=== PATIENT | female | born 1990 | race Caucasian/White ===

== ENCOUNTER 2019-10-20 11:25 | Outpatient (CLI) | payer BC, SELFPAY ==
[2019-10-20 11:43] LABS: Hematocrit 39.3 % (37.0-47.0); Hemoglobin 13.3 g/dL (12.0-15.0)
== END 2019-10-20 11:26 | disposition home or self-care (01) ==
LOC: ANHSURGERY 11:28
PROVIDERS: PCP Family Medicine; Visit Provider Student in an Organized Health Care Education/Training Program
DX: R87.619 Unspecified abnormal cytological findings in specimens from cervix uteri (principal)
CPT/HCPCS: 36415; 85014; 85018

== ENCOUNTER 2019-10-26 00:23 | Day surgery (SDC) | payer BC, SELFPAY ==
[2019-10-12 11:13] VITALS: BMI 26.5
--- NOTE | 2019-10-26 08:01 | PM.IMHP ---
H&P: HPI History of Present Illness Chief complaint: LARISSA 3, abn cervical biopsy Narrative: Ena Dutton is a 29 year old female who presents for cold knife cone. Pt initially presented to me with biopsy proven LARISSA-3 from her PCP. She underwent a LEEP procedure that confirmed LARISSA-3 with indeterminate margins. Follow up Pap smear again showed HSIL. Colposcopy with cervical biopsy again showed LARISSA-3. Review of Systems Cardiovascular: Cardiovascular: Denies chest pain, Denies leg edema, Denies palpitations, Denies dyspnea and Denies dyspnea on exertion Respiratory: Respiratory: Denies cough, Denies dyspnea and Denies dyspnea on exertion Gastrointestinal: Gastrointestinal: Denies abdominal pain, Denies constipation, Denies diarrhea, Denies nausea and Denies vomiting Genitourinary: Genitourinary: Denies hematuria, Denies urinary frequency, Denies dysuria, Denies pelvic pain, Denies urinary incontinence and Denies vaginal discharge Neurologic: Reports system reviewed and no additional complaints, except as documented Psychiatric: Psychiatric: Reports no additional psychiatric complaints Endocrine: Endocrine: Denies palpitations PMF Family History Family History (Updated 02/22/18 @ 16:22 by DOCTOR UNKNOWN) Mother Depression, Onset Age: 54 Hypertension, Onset Age: 54 Family history of congestive heart failure, Onset Age: 54 Patient's mother is , Onset Age: 54 Father Family history of elevated blood lipids Hypertension Social History Social History Smoking status: Never smoker Alcohol intake: current Meds Home Medications and Allergies Home Medications Medication Instructions Recorded Confirmed Type apple cider vinegar 600 mg PO DAILY 10/12/19 10/12/19 History drospirenone-ethinyl estradiol 1 tablet PO QPM 10/12/19 10/12/19 History [Karishma (28)] propranolol 80 mg PO DAILY 10/12/19 10/12/19 History Allergies Allergy/AdvReac Type Severity Reaction Status Date / Time codeine Allergy Unknown Rash Verified 10/12/19 11:15 Antihistamines - Alkylamine AdvReac Unknown Verified 10/12/19 11:27 Exam Const: General: no acute distress Eyes: EOM: EOMs intact bilaterally Neck: Neck: supple Thyroid: thyroid normal Chest: Breast/axilla inspection: normal inspection of the breasts Breast/axilla palpation: normal palpation of the breasts, normal palpation of the axillae and no axillary lymphadenopathy Resp: Effort & Inspection: normal respiratory effort Auscultation: clear to auscultation bilaterally Cardio: Rate: regular rate Rhythm: regular rhythm GI: Inspection: non-distended GI Palp: Yes Soft to palpation, No Tenderness to palpation present (GI) and No Guarding due to palpation present (GI) Auscultation: normal bowel sounds : General: No bladder normal to palpation External Female Exam: normal external appearance Speculum Exam - Vagina: normal vaginal discharge and No vaginal bleeding Speculum Exam - Cervix: nontender Bimanual exam- vagina & uterus: No bladder normal to palpation and No Cervical tenderness present OB/external & speculum: No vaginal bleeding Skin: General skin exam: normal color and no rashes or lesions noted Neuro: Cognition (Neuro): normal cognition Speech: normal speech Extrem: General: normal to inspection and no edema Psych: Mental Status: mental status grossly normal Affect: normal affect Assessment and Plan Assessment and plan (1) 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
[2019-10-26 14:28] VITALS: BP 126/81; PULSE 75; RESP 18; TEMP 36.5; O2SAT 100
--- NOTE | 2019-10-26 14:32 | WPDANESEPPF ---
Anes - Initial Pre Proc Eval Procedure: Operation Date: 10/26/19 16:00 Proposed Procedures p Cold Knife Conization - Samson Ramirez MD Date/Time: 10/26/19 14:32 Surgeon: Samson Ramirez MD Pre Op Diagnosis: LARISSA 3, abn cervical biopsy Patient Data Age: 29 Gender: F Height: 5 ft 3 in Weight: 68.04 kg Allergies Allergy/AdvReac Type Severity Reaction Status Date / Time codeine Allergy Unknown Rash Verified 10/12/19 11:15 Antihistamines - Alkylamine AdvReac Unknown Verified 10/12/19 11:27 Home Medications Medication Instructions Recorded Confirmed Type apple cider vinegar 600 mg PO DAILY 10/12/19 10/12/19 History drospirenone-ethinyl estradiol 1 tablet PO QPM 10/12/19 10/12/19 History [Karishma (28)] propranolol 80 mg PO DAILY 10/12/19 10/12/19 History Patient hx anesthesia problems: none Family hx anesthesia problems: none PMFSH Past Medical History Medical History Prolonged QT interval Family History Family History Mother Depression, Onset Age: 54 Hypertension, Onset Age: 54 Family history of congestive heart failure, Onset Age: 54 Patient's mother is , Onset Age: 54 Father Family history of elevated blood lipids Hypertension Social History Social History Smoking status: Never smoker Alcohol intake: current Anes - Eval Final PreProcedure Day of Procedure 10/26/19 14:32 Patient weight: overweight Heart: regular rate and rhythm Lungs: clear to auscultation Airway: Mallampati scale class II Neurological: alert and oriented Last oral intake: >/= 8 hours ASA classification: II Emergent: no Anesthetic plan: proceed Anesthesia type and monitoring: general GIVS and standard monitoring Informed Consent: The patient's anesthetic plan and its attendant risks and benefits were discussed with the patient/family/POA. Questions were solicited and answers provided to the satisfaction of the patient/family/POA.
[2019-10-26] MEDS: LACTATED RINGERS 1,000 ML 30 ML IV CONT ×2 (14:40→15:54)
[2019-10-26] MEDS: KETOROLAC 30 MG/ML VIAL (*BKC) 15 MG IV PUSH (15:30)
[2019-10-26] MEDS: LIDO 1%/EPINEPHRINE 1:100,000 20 ML VIAL 10 ML INFILTRATE (15:40)
--- NOTE | 2019-10-26 15:54 | PM.PROC ---
Procedure Note - Detailed Date of procedure: 10/26/19 Pre-op diagnosis: LARISSA 3, abn cervical biopsy Description of procedure: 1. On pre-operative bimanual exam, there was no parametrial disease appreciated. On sterile speculum exam, there was no gross disease identified The transformation zone was fully identified in its entirety. SPECIMENS: 1. Cone biopsy of the cervix; stitch at 12 o'clock 2. Post cone ECC INDICATIONS FOR SURGERY: 29 yo female with CIN3. She was counseled as to the indications, risks, benefits, and alternatives to surgery, with the risks including bleeding, infection, damage to surrounding organs, VTE, and complications of anesthesia. Her verbal and written consent was obtained. PROCEDURE: The patient was taken to the OR and general anesthesia induced. She was prepped and draped in candy cane stirrups with support of the back and bilateral lower extremities. I/O catheterization performed of the bladder. The above findings were noted. Infiltration with 1% lidocaine circumfrencially around the cervix was performed. Stay sutures of 0-Vicryl were placed here as well. Using an 11-blade, a circumferential incision lateral to the transformation zone was made; using the knife, a cone shaped biopsy was excised and tagged at the 12 o'clock cervical position for pathology orientation. A post cone endocervical curettage was performed for margin status. Hemostasis was obtained with ball cautery and surgicell powder. The stay sutures and the speculum removed. The patient tolerated the procedure well. Sponge, lap, and needle counts were correct. The patient received no pre-operative anti-microbial prophylaxis and had SCD's on throughout the case for VTE prophylaxis. The patient was taken to the recovery room in stable condition. Anesthesia: MAC Surgeon: Samson Ramirez MD Estimated blood loss (mL): 10 Drains: No Packing: No Pathology: yes (cervical cone biopsy, endocervical curettage ) Complications: No immediate complications Condition: stable Disposition: PACU
[2019-10-26 15:55] VITALS: BP 114/53; PULSE 91; RESP 14; O2SAT 100
[2019-10-26 16:25] VITALS: BP 132/83; PULSE 79; RESP 16
[2019-10-26 17:10] VITALS: BP 137/89; PULSE 67; RESP 14
== END 2019-10-26 17:28 | disposition home or self-care (01) ==
PROVIDERS: PCP Family Medicine; Visit Provider Student in an Organized Health Care Education/Training Program
PROC: 0UB97ZZ Excision of Uterus, Via Natural or Artificial Opening (ICD-10-PCS; CPT 57520; principal; 2019-10-26 16:00)
DX: D06.1 Carcinoma in situ of exocervix (principal)
CPT/HCPCS: 57520; 88305; A9270; J0131; J1100; J1885; J2250; J2405; J2704; J3010; J7120

== ENCOUNTER 2020-03-23 09:35 | Emergency (ER) | payer OTHER, SELFPAY ==
[2020-03-23 09:44] VITALS: BP 128/99; PULSE 86; RESP 20; TEMP 36.6; O2SAT 100
--- NOTE | 2020-03-23 10:00 | ED.URI ---
HPI - URI/Sore Throat General Chief Complaint: Upper Respiratory Infection Stated Complaint: cough/tight lungs/body aches Time Seen by Provider: 03/23/20 10:01 Source: patient and RN notes reviewed Mode of arrival: ambulatory Limitations: no limitations History of Present Illness HPI Narrative: Patient presents today complaining of body aches and cough since this morning. Denies fever, shortness of breath, congestion, rhinorrhea, sore throat. Denies nausea, vomiting, diarrhea. Denies loss of smell or taste. No recent travel. No known COVID-19 exposure. Patient does have history of seasonal allergies for which he takes Zyrtec as needed, but has not had it for a couple of days. 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 Denies history of asthma or COPD. She is a non-smoker. MD elicited complaint: cough Related Data Home Medications Medication Instructions Recorded Confirmed drospirenone-ethinyl estradiol 1 tablet PO QPM 10/12/19 03/23/20 [Karishma (28)] Allergies Allergy/AdvReac Type Severity Reaction Status Date / Time codeine Allergy Unknown Rash Verified 02/01/20 08:35 Review of Systems Review of Systems: Narrative: CONSTITUTIONAL: Denies fever, chills, or sweats.+ Body aches EYES: Denies visual changes, redness, or discharge. ENT: Denies rhinorrhea, congestion, sore throat, or otalgia. CARDIOVASCULAR: Denies chest pain, palpitations, or edema. RESPIRATORY: Denies dyspnea.+ Cough GASTROINTESTINAL: Denies abdominal pain, nausea, vomiting, or diarrhea. GENITOURINARY: Denies dysuria or hematuria. SKIN: Denies rash, itching, or wounds. MUSCULOSKELETAL: Denies back pain, joint pain, or myalgia. NEUROLOGIC: Denies headache, numbness, tingling, or weakness. PSYCH: Denies depression or anxiety. [facility] Past Medical History Medical History (Updated 03/23/20 @ 10:11 by Maritza Rai, NETWORK SUPPORT ANALYST, ) Anogenital (venereal) warts Hx of esophageal reflux Overweight Prolonged QT interval Urticaria Social History Social History Smoking status: Never smoker Alcohol intake: current Gender identity (if verbalized by the patient): Female Comments At time of signature, I have reviewed and agree with nursing past medical, surgical, social and family history unless otherwise noted. Please see nursing chart for further information. There is no relevant family history pertinent to the presenting complaint Exam Narrative: Exam Narrative: GENERAL: Well-appearing, well-nourished, and in no acute distress. HEAD: Normocephalic, atraumatic. EYES: EOMI. No redness or drainage. Conjunctivae normal. ENT: Mucous membranes pink and moist. Nares clear. No rhinorrhea. TMs normal bilaterally. Throat normal. Uvula midline. NECK: Normal AROM. Supple. No lymphadenopathy. CHEST: No respiratory distress. Clear to auscultation. HEART: Regular rate and rhythm. No murmur appreciated. Normal peripheral pulses. EXTREMITIES: Normal range of motion. No edema. SKIN: Warm, dry, no rash. Capillary refill normal. Normal skin turgor. NEURO: No focal deficits. Alert and oriented x3. Gait steady. PSYCH: Normal affect. No signs of depression or anxiety. Course Course Emergency Course: Due to recent exposure and symptoms, patient may have a possible COVID-19 infection. Signs and symptoms discussed with patient. Patient educated to self-isolate in a room in his/her home away from others they live with. Use mask if available. Patient was advised not to leave house for any reason ? Self-treatment discussed including Tylenol for fever, pain, or myalgia, and cough cold medications for symptoms. Patient to check temperature daily and monitor for symptoms of respiratory distress. Patient should check in daily with primary care office/system via phone/virtual platform ? Nature of the disease to cause severe respiratory distress discussed
== END 2020-03-23 10:13 | disposition home or self-care (01) ==
PROVIDERS: Emergency Provider Nurse Practitioner; PCP Family Medicine
DX: J06.9 Acute upper respiratory infection, unspecified (principal); Z20.828 Contact with and (suspected) exposure to other viral communicable diseases; K21.9 Gastro-esophageal reflux disease without esophagitis
CPT/HCPCS: 99211; G0463

== ENCOUNTER 2021-12-13 00:42 | Inpatient (IN) | payer OTHER, SELFPAY ==
[2021-12-13] VITALS (22 sets, daily range): BP systolic 110–155; BP diastolic 68–121; PULSE 57–85; RESP 14–18; TEMP 36.2–37; O2SAT 100; BMI 32.0
--- NOTE | 2021-12-13 01:37 | LDADM ---
This patient, Ena Carrillo, was admitted to Labor/Delivery/Recovery 106 on 12/13/21 at 00:42. Plans for labor, pain management and were discussed with patient. Patient/family oriented to hospital policies and general routines including ID bracelet, bed and alarms, visiting hours, pain management, procedures, bathroom and other care routines, personal items, smoking policy, room service/diet and guest tray routines, security routines, and visiting hours. Patient/Family are encouraged to report perceived risks to care and to ask questions if they do not understand what they are told or what they should do. See [facility] for further documentation.
[2021-12-13 01:57] LABS: Basophils Percent Auto 0.3 % (0.2-1.2); Eosinophils Absolute Auto 0.4 K/mm3 (0-0.3); Eosinophils Percent Auto 4.3 % (0-4.4); Hematocrit 33.8 % (37.0-47.0); Hemoglobin 11.6 g/dL (12.0-15.0); Immature Granulocyte Absolute 0.05 K/mm3 (0.00-0.031); Immature Granulocyte Percent A 0.5 % (0-0.5); Immature Platelet Fraction Pct 17.2 % (0.9-11.2); Lymphocytes Absolute Auto 1.57 K/mm3 (0.9-3.2); Lymphocytes Percent Auto 17.3 % (18.3-44.2); Mean Corpuscular HGB Conc 34.3 g/dl (32-36); Mean Corpuscular Hemoglobin 30.2 pg (26-34); Mean Platelet Volume 13.1 fl (7.4-10.4); Monocytes Absolute Auto 0.9 K/mm3 (0.1-0.6); Neutrophils Absolute Auto 6.2 K/mm3 (1.3-6.7); Neutrophils Percent Auto 67.6 % (45.5-73.1); Platelet Count Result 167 k/mm3 (150-375); Red Blood Count 3.84 M/mm3 (4.2-5.4); Red Cell Distribution Width 13.3 % (11.5-14.5); White Blood Count 9.1 K/mm3 (4.5-10.0)
[2021-12-13] MEDS: LACTATED RINGERS 1,000 ML 125 ML IV CONT (02:27)
[2021-12-13] MEDS: AMPICILLIN 2 GM/NS 100 ML 2 GM/100 ML BAG IVPB (02:28)
[2021-12-13] MEDS: OXYTOCIN 30 UNITS/NS 500 ML 30 UNITS/500 ML BAG 999 UNITS IV CONT ×2 (05:52→06:20)
--- NOTE | 2021-12-13 06:07 | PM.OBPRVD ---
OB - Delivery Note Procedure Delivery date: 12/13/21 Events: Premature Rupture of Membranes Delivery monitor: External FHT Route of delivery: Episiotomy description: None Laceration Description: Perineal - 2nd Degree Delivery repair: vicryl Specimen: No Quantitative Blood Loss (ml): 259 Anesthesia type: Local Disposition: Floor Baby Date of : 12/13/21 Time of : 05:48 Weeks of gestation at delivery: 36 Weight (pounds): 7 Weight (ounces): 5 presentation: vertex position: Right Occiput Anterior Placenta delivery description: Spontaneous Cord Vessel Description: 3 Vessels score one minute: 8 score five minutes: 9
--- NOTE | 2021-12-13 06:09 | PM.IMHP ---
H&P: HPI History of Present Illness Date/Time: 12/13/21 06:09 31-year-old 1 para 0 admitted with spontaneous rupture membranes prior to admission. She had relatively unremarkable . She does have low long QT syndrome it has been asymptomatic. She ruptured at 36 weeks and has progressed rapidly. Group B strep screen was not done yet Chief Complaint: rupture membranes at 36 weeks Review of Systems Review of Systems: All systems reviewed & are unremarkable except as noted in HPI and below PMFSH Past Medical History Medical History Anogenital (venereal) warts Hx of esophageal reflux Infected cyst of skin Overweight Prolonged QT interval Urticaria Family History Family History Mother Depression, Onset Age: 54 Patient's mother is , Onset Age: 54 Family history of congestive heart failure, Onset Age: 54 Hypertension, Onset Age: 54 Father Family history of elevated blood lipids Hypertension Asthma Sibling Long QT syndrome Social History Social History Smoking status: Never smoker Second hand tobacco smoke exposure: Yes Alcohol intake: former Substance use: never Substance use type: does not use Living arrangements: with family Gender identity (if verbalized by the patient): Female Sexual Orientation (if Verbalized by the Patient): Straight or Heterosexual Spiritual care concerns: No Meds Home Medications and Allergies Home Medications Medication Instructions Recorded Confirmed Type docosahexaenoic acid 200 mg capsule mg PO 10/17/21 10/17/21 History Allergies Allergy/AdvReac Type Severity Reaction Status Date / Time codeine Allergy Unknown Rash Verified 12/12/21 12:33 Vital Signs Vital Signs - 24 hr 12/13/21 01:11 12/13/21 01:16 12/13/21 02:32 Temperature 97.9 F Pulse Rate 68 75 61 Respiratory Rate 16 Blood Pressure 151/81 H 155/90 H 133/92 H 12/13/21 02:46 12/13/21 03:01 12/13/21 03:16 Temperature Pulse Rate 69 71 Respiratory Rate Blood Pressure 153/84 H 133/87 136/121 H 12/13/21 03:27 12/13/21 03:31 12/13/21 03:46 Temperature 98.2 F Pulse Rate 65 71 75 Respiratory Rate 16 Blood Pressure 145/79 H 124/98 H 126/83 Exam Const: General: no acute distress Eyes: General: appearance normal, both eyes and all related structures Neck: Neck: supple and no JVD Thyroid: thyroid normal Resp: Effort & Inspection: normal respiratory effort Auscultation: clear to auscultation bilaterally Cardio: Rate: regular rate Rhythm: regular rhythm GI: Inspection: non-distended GI Palp: Yes Soft to palpation, No Tenderness to palpation present (GI) and No Guarding due to palpation present (GI) Auscultation: normal bowel sounds : General: Yes bladder normal to palpation External Female Exam: normal external appearance Speculum Exam - Vagina: normal vaginal discharge and No vaginal bleeding Speculum Exam - Cervix: nontender Bimanual exam- vagina & uterus: bladder normal to palpation and No Cervical tenderness present OB/external & speculum: No vaginal bleeding Skin: General skin exam: no rashes or lesions noted Extrem: General: normal to inspection and no edema Psych: Mental Status: mental status grossly normal Affect: normal affect H&P: Results Labs Labs: Short CBC 12/13/21 Range/Units 01:43 WBC 9.1 (4.5-10.0) K/mm3 Hgb 11.6 L (12.0-15.0) g/dL Hct 33.8 L (37.0-47.0) % Plt Count 167 (150-375) k/mm3 Assessment and Plan Additional Plan impression: 36 week with spontaneous rupture membranes Plan: Antibiotics begun. Spontaneous vent delivery is expected
[2021-12-13] MEDS: LIDOCAINE HCL 1% LOCAL INJ 10 ML VIAL 20 ML (06:25)
[2021-12-13] MEDS: IBUPROFEN 600 MG TABLET PO ×2 (06:26→14:26)
[2021-12-13] MEDS: BENZOCAINE 20% AER SPR (*SP) 56 GM CAN 1 SPRAY TOPICAL (06:27)
[2021-12-13] MEDS: WITCH HAZEL 40 PADS 1 PAD TOPICAL (06:27)
--- NOTE | 2021-12-13 08:25 | PC.NURSE ---
Patient transferred to post room #287 per wheelchair. Support person present. Oriented to unit, room, information board, rooming in, admission packet and security measures. Patient verbalizes understanding.
--- NOTE | 2021-12-13 13:13 | PC.NURSE ---
Breast pump provided due to in level II nursery. Instructions given on cleaning, care, usage, there should be no pain, pumping schedule for milk production, collection, and storage of human milk. Patient was assessed for correct placement, flange size, to pump for comfort and nipple stretching/stimulation for adequate milk production. Mother voiced understanding of the education shared. Reported to the primary RN.
[2021-12-13] MEDS: LANOLIN (LANSINOH) 7.5 GM CREAM 1 APPLIC TOPICAL (14:26)
[2021-12-14] MEDS: IBUPROFEN 600 MG TABLET PO ×2 (00:31→10:23)
[2021-12-14 04:00] VITALS: BP 139/80; PULSE 70; RESP 14; TEMP 36.8; O2SAT 100
[2021-12-14 05:16] LABS: Hematocrit 27.9 % (37.0-47.0); Hemoglobin 9.4 g/dL (12.0-15.0)
--- NOTE | 2021-12-14 09:21 | PM.OBPNVD ---
OB - PN: Subj Subjective Date/time seen: 12/14/21 09:21 Patient comments: no complaints and pain well controlled baby status: doing well OB - PN: Obj Data Labs CBC & Chem 7: 12/14/21 04:42 Labs: Laboratory Results - last 24 hr 12/14/21 04:42 Hgb 9.4 L Hct 27.9 L OB - PN A/P Plan day: 1 Plan: routine care Time Spent With Patient Time: Total time spent is greater than 50% in coordination of care (as documented) at patient's floor/unit and/or counseling patient: Time with patient: less than 15 minutes Review of Systems Review of Systems: All systems reviewed & are unremarkable except as noted in HPI and below Exam Const: General: no acute distress Eyes: General: appearance normal, both eyes and all related structures Neck: Neck: supple and no JVD Thyroid: thyroid normal Resp: Effort & Inspection: normal respiratory effort Auscultation: clear to auscultation bilaterally Cardio: Rate: regular rate Rhythm: regular rhythm GI: Inspection: non-distended GI Palp: Yes Soft to palpation, No Tenderness to palpation present (GI) and No Guarding due to palpation present (GI) Auscultation: normal bowel sounds : General: Yes bladder normal to palpation External Female Exam: normal external appearance Speculum Exam - Vagina: normal vaginal discharge and No vaginal bleeding Speculum Exam - Cervix: nontender Bimanual exam- vagina & uterus: bladder normal to palpation and No Cervical tenderness present OB/external & speculum: No vaginal bleeding Skin: General skin exam: no rashes or lesions noted Extrem: General: normal to inspection and no edema Psych: Mental Status: mental status grossly normal Affect: normal affect
[2021-12-14] MEDS: DOCUSATE SODIUM 100 MG CAPSULE PO (10:23)
[2021-12-14] MEDS: MULTIVIT/MIN/PREN/FOL AC/IRON TABLET 1 TAB PO (10:23)
[2021-12-14] MEDS: POLYSACCHARIDE IRON COMPLEX 150 MG CAPSULE PO ×2 (10:24→19:46)
[2021-12-14 10:25] VITALS: BP 135/80; PULSE 82; RESP 18; TEMP 36.3; O2SAT 100
[2021-12-14 19:53] VITALS: BP 134/77; PULSE 72; RESP 18; TEMP 36.9; O2SAT 100
--- NOTE | 2021-12-15 07:39 | PM.DS ---
DS: Admitting Diagnosis Discharge Date 12/15/2021 Admitting Diagnosis term in active labor DS: Summary Hospital Course Hospital Course: patient was admitted in active labor. She underwent spontaneous vaginal delivery under hospital course unremarkable. This was the 36 week delivery and the baby did well Time Spent with Patient Time attestation: Total time spent providing and/or coordinating discharge services: Exam Const: General: no acute distress Eyes: General: appearance normal, both eyes and all related structures Neck: Neck: supple and no JVD Thyroid: thyroid normal Resp: Effort & Inspection: normal respiratory effort Auscultation: clear to auscultation bilaterally Cardio: Rate: regular rate Rhythm: regular rhythm GI: Inspection: non-distended GI Palp: Yes Soft to palpation, No Tenderness to palpation present (GI) and No Guarding due to palpation present (GI) Auscultation: normal bowel sounds : General: Yes bladder normal to palpation External Female Exam: normal external appearance Speculum Exam - Vagina: normal vaginal discharge and No vaginal bleeding Speculum Exam - Cervix: nontender Bimanual exam- vagina & uterus: bladder normal to palpation and No Cervical tenderness present OB/external & speculum: No vaginal bleeding Skin: General skin exam: no rashes or lesions noted Extrem: General: normal to inspection and no edema Psych: Mental Status: mental status grossly normal Affect: normal affect Discharge Plan Discharge Attending physician on discharge: Ever Giordano Discharging Clinician: Ever Giordano Patient Disposition: Home, Self-Care Activity: no straining and pelvic rest Diet: heart healthy Wound Care Instructions: follow printed instructions Patient Instructions: Antibiotic Form Stand Alone Forms: General Discharge Information Follow-up/Referrals: Ever Giordano MD [Physician] - Discharge Medications: Continued DHA 200 mg capsule 200 mg PO DAILY RF: 0 methylprednisolone 4 mg tablets,dose pack 4 mg PO DAILY RF: 0 erythromycin-benzoyl peroxide 3-5 % gel 1 applic TOPICAL PRN RF: 0 Date of admission: 12/13/21 00:42 Primary Care Provider: Cindi Craig Admitting Provider: Samson Ramirez Attending physician on admission: Samson Ramirez Condition: Stable
--- NOTE | 2021-12-15 07:42 | PM.OBPNVD ---
OB - PN: Subj Subjective Date/time seen: 12/15/21 07:42 Patient comments: no complaints and pain well controlled baby status: doing well OB - PN: Obj Data Labs CBC & Chem 7: 12/14/21 04:42 OB - PN A/P Plan day: 2 Plan: routine care, discharge home and follow up 6 weeks Time Spent With Patient Time: Total time spent is greater than 50% in coordination of care (as documented) at patient's floor/unit and/or counseling patient: Time with patient: less than 15 minutes Review of Systems Review of Systems: All systems reviewed & are unremarkable except as noted in HPI and below Exam Const: General: no acute distress Eyes: General: appearance normal, both eyes and all related structures Neck: Neck: supple and no JVD Thyroid: thyroid normal Resp: Effort & Inspection: normal respiratory effort Auscultation: clear to auscultation bilaterally Cardio: Rate: regular rate Rhythm: regular rhythm GI: Inspection: non-distended GI Palp: Yes Soft to palpation, No Tenderness to palpation present (GI) and No Guarding due to palpation present (GI) Auscultation: normal bowel sounds : General: Yes bladder normal to palpation External Female Exam: normal external appearance Speculum Exam - Vagina: normal vaginal discharge and No vaginal bleeding Speculum Exam - Cervix: nontender Bimanual exam- vagina & uterus: bladder normal to palpation and No Cervical tenderness present OB/external & speculum: No vaginal bleeding Skin: General skin exam: no rashes or lesions noted Extrem: General: normal to inspection and no edema Psych: Mental Status: mental status grossly normal Affect: normal affect
[2021-12-15 08:00] VITALS: PULSE 89; RESP 16; O2SAT 97
[2021-12-15 08:15] VITALS: BP 130/85; PULSE 89; RESP 16; TEMP 36.8; O2SAT 97
[2021-12-15 09:13] LABS: Rapid Plasma Reagin Non-Reactive (NonReactive)
[2021-12-15] MEDS: DOCUSATE SODIUM 100 MG CAPSULE PO (09:55)
[2021-12-15] MEDS: POLYSACCHARIDE IRON COMPLEX 150 MG CAPSULE PO (09:55)
[2021-12-15] MEDS: MULTIVIT/MIN/PREN/FOL AC/IRON TABLET 1 TAB PO (09:55)
[2021-12-15] MEDS: TETANUS,DIPHTHERIA,AC PERTUSSIS ADULT (0.5 ML) BOOSTRIX IM (09:57)
--- NOTE | 2021-12-15 10:19 | PC.NURSE ---
Patient viewed the discharge video Mother & Baby Care, The First Two Weeks . Patient was given the opportunity and encouraged to ask questions. Patient verbalized understanding of information shared and has been given the mother/baby guide for home reference.
--- NOTE | 2021-12-15 15:00 | PC.NURSE ---
[id number] Introductions were made and mother led the conversation with her experience and plan to feed her so far and her ability to independently latch infant optimally without discomfort. Reminded parents to use good handwashing technique to prevent infection. Mother is feeding appropriately for growth of and understands stimulating to eat if needed. Mother works well with her with encouragement and education. Encouraged understanding of the benefits of skin to skin (unwrapping infant and placing vertically on her chest), responsive feeding and how to watch for early feeding signs, frequency of feeding on demand about every 8-12 times in 24 hours (every 2-3 hours), milk production, duration of feeding, signs of adequate intake/output and how to record on the feeding sheet. Reviewed positioning and ear, shoulder, hip alignment, supporting the breast, asymmetrical latch (off-center), and leading with the chin with a big open side gape. latched optimally to the left breast in football position. Infant maintained latch for 10 minutes then self detached. Nipple was slightly misshaped and mother encouraged to put forth efforts to latch with having a big wide gape due to the size of the nipple in comparison to the infant's mouth. Mother latched infant to the right breast using cross cradle. Reviewed changing up positions as infant learns to latch better with each feeding. Education given to mother of how to visualize suck/swallow ratios and drinking at the breast. was able to maintain latch without discomfort to mother. Nipple care reviewed with optimal latch and good positioning. Reminding mother of comfort measures of healing with a warm and wet washcloth to rinse breast, then leave open to air-dry as needed. Reviewed good handwashing when or touching the breast/nipples to prevent infection. Resources used to facilitate learning were used with the visual handouts/mom and baby guide. Mother voiced understanding of responsive feedings, stimulating with skin to skin, hand expressed colostrum, touch, talking to to encourage if it has been 2 -3 hours since the start of the last . Reviewed the importance of putting forth efforts to stimulate 36 week infant to wake and breastfeed 8-12 times in a 24 hour period. has had appropriate feedings in the last 24 hours meets the outcomes for weight, output and jaundice at this time. Mother states she is confident to continue effectively /pumping if there is not an effective breastfeed, and supplementing per order until weight gain improves her at home or when to call for assistance and denies any additional assistance or education at this time. Reinforced understanding of milk production, transition of milk, signs of adequate intake, prevention/relief of engorgement, responsive after visualizing feeding cues, the different methods of stimulating to breastfeed 2-3 hours after the start of the last feeding, community resources, medication information reviewed per [employer] and when to call the infant/maternal care provider using the resource of the mom and baby guide/[facility] website. Mother voiced understanding of the education shared. Reported to the primary RN.
--- NOTE | 2021-12-15 15:19 | PC.NURSE ---
1010 - Re-enforced teaching to father of the baby to stimulate 36 week delivered infant to effectively awaken, drink at the breast, and supplement. Parents have an appt with follow-up and with ICP tomorrow. Father voiced understanding to wake infant up for feedings every 2-3 hours if there are no feeding cues visualized. Reported to primary RN.
[2021-12-16 07:44] VITALS: BP 133/88; PULSE 91; RESP 20; TEMP 37.1; O2SAT 100
== END 2021-12-15 12:41 | disposition home or self-care (01) | DRG 805 ==
LOC: ANHOB2 12-15 11:30 → ANHLDR 12-15 16:17 → ANHOB2 12-15 16:17
PROVIDERS: Admitting Provider Obstetrics & Gynecology; PCP Family Medicine; Visit Provider Obstetrics & Gynecology
DX: O42.913 Preterm premature rupture of membranes, unspecified as to length of time between rupture and onset of labor, third trimester (principal); Z37.0 Single live birth; Z3A.35 35 weeks gestation of pregnancy; O60.14X0 Preterm labor third trimester with preterm delivery third trimester, not applicable or unspecified; O62.3 Precipitate labor; O70.1 Second degree perineal laceration during delivery
CPT/HCPCS: 36415; 84112; 85014; 85018; 85025; 85055; 86592; 86850; 86900; 86901; 90715; A9270; J0290; J2590; J7120

== ENCOUNTER 2022-01-06 12:49 | Outpatient (RCR) | payer OTHER, SELFPAY ==
--- NOTE | 2022-01-06 15:39 | PC.NURSE ---
In- 1249 Out- 1429 Reason for visit: latch issues History: Mother delivered at 35 6/7 after premature rupture of membranes at [facility]. . No other complications noted with exception to an unexpected early delivery. Infant History: was born at 35 6/7 and was level 2 at the hospital after delivery. Observations: was in the late stage of feeding cues at appt. time. was able to organize and calm with skin to skin. remained eager to eat and presented with a big open wide gape mouth but at times would lift his tongue to latch. Repeated attempts to latch and infant was able to maintain latch after the milk let down in football positioning on the right breast. Latch is optimal as mother states there is no discomfort, rounded cheek line with no dimpling, clicking, popping. Mother voiced understanding of knowing the difference between good rocking nutritive suck/ swallowing versus non-nutritive sucking. Mother is encouraged to breastfeed until baby detaches. Mother states she had been limiting to 15 min on each side per Dr's order from the first [facility] visit. Mother reassured that now that her milk is in and infant is gaining weight to not have feeding time limit restrictions. detached and burped. Mother offered the left breast using football position. opens with big wide gape but at times lifts his tongue. Mother encouraged to wait until the tongue drops to latch infant and work on timing. Mother denies discomfort after a few minutes of . Mother encouraged to breastfeed without a time limit. Infant is stimulated at times to keep drinking at the breast. Nipple was slightly misshaped after infant self-detached. Reviewed positioning, milk production, optimal latching, changing positioning, and timing feeding early while infant is quiet, alert, and awake before infant is crying and fussy. may move through the feeding cues quicker due to early delivery and mother encouraged to continue to rest, stay hydrated, practice skin to skin and working with positioning and latching optimally. Mother voiced understanding of the review of education. weight: 3315g Lowest weight: 2950g Last weight: 7-3 Pre-feed weight: 3499 Post-feed weight: 3543 Plan of Care: Mother will breastfeed in different positions to work on maintaining big open wide gaping latch that is deep and protects the nipple. Mother is planning on not restricting the time and timing the latch with the tongue down. Mother is pumping to improve her milk supply. Discussion of bottle feeding with formula and the risk and benefits of that as it pertains to with optimal latching. Goals are: Nipple care and achieving and maintaining effective latch. Follow up plans: Mother will follow-up with a phone call to discuss how the plan at home is going. Mother voiced understanding of when to call her ICP.
== END 2022-02-24 09:15 | disposition home or self-care (01) ==
LOC: ANHOBOP 12:49
PROVIDERS: PCP Family Medicine; Visit Provider Pediatrics
DX: Z39.1 Encounter for care and examination of lactating mother (principal)
CPT/HCPCS: 99214; G0463